=== PATIENT | female | born 1990 | race Caucasian/White ===

== ENCOUNTER 2017-02-08 15:04 | Emergency (ER) | payer SELFPAY ==
[~2017-02-08] VITALS: Ht 154.9 cm; Wt 56.7 kg
[2017-02-08] MEDS ORDERED: KETOROLAC 30 MG/ML VIAL (J1885) IV ONE (15:30)
[2017-02-08] MEDS ORDERED: NS 1,000 ML IV ONE (15:30)
[2017-02-08] MEDS ORDERED: ONDANSETRON 4MG/2ML VIAL (J2405) IV ONE (15:30)
[2017-02-08 16:05] LABS: BASO % 0.4 % (0.0-1.0); EOS % 0.4 % (0.0-3.0); LARGE UNSTAINED CELL # 0.1 K/mm3 (0.0-0.4); LARGE UNSTAINED CELL % 0.7 % (0.0-4.0); LYMPH # 1.7 K/mm3 (1.5-6.5); LYMPH % 16.2 % (24.0-44.0); MEAN CORPUSCULAR HEMOGLOBIN 30.2 pg (27.0-33.0); MEAN CORPUSCULAR HGB CONC 34.3 g/dl (32.0-36.5); MEAN CORPUSCULAR VOLUME 87.9 fl (80.0-96.0); MONO # 0.4 K/mm3 (0.0-0.8); NEUTROPHILS # 7.7 K/mm3 (1.8-7.7); NEUTROPHILS % 78.3 % (36.0-66.0); PLATELET COUNT, AUTOMATED 217 k/mm3 (150-450); WHITE BLOOD COUNT 9.8 K/mm3 (4.0-10.0)
[2017-02-08 16:10] LABS: INR 1.05
[2017-02-08 16:24] LABS: CONTROL LINE HCG INT CTR LINE PRESENT
[2017-02-08 16:28] LABS: ALBUMIN 4.3 GM/DL (3.2-5.2); ALBUMIN/GLOBULIN RATIO 1.19 (1.00-1.93); ALKALINE PHOSPHATASE 45 U/L (45-117); ALT/SGPT 19 U/L (12-78); AMYLASE 33 U/L (25-115); ANION GAP 6 MEQ/L (8-16); AST/SGOT 12 U/L (15-37); BILIRUBIN,DIRECT < 0.1 MG/DL (0.0-0.2); BILIRUBIN,TOTAL 0.3 MG/DL (0.2-1.0); BLOOD UREA NITROGEN 9 MG/DL (7-18); CALCIUM LEVEL 9.8 MG/DL (8.5-10.1); CARBON DIOXIDE LEVEL 27 MEQ/L (21-32); CHLORIDE LEVEL 105 MEQ/L (98-107); CREATININE FOR GFR 0.66 MG/DL (0.55-1.02); GLOMERULAR FILTRATION RATE > 60.0 (>60); GLUCOSE, FASTING 89 MG/DL (70-105); POTASSIUM SERUM 3.8 MEQ/L (3.5-5.1); SODIUM LEVEL 138 MEQ/L (136-145); TOTAL PROTEIN 7.9 GM/DL (6.4-8.2)
--- NOTE | 2017-02-08 17:07 | REP ---
GALLBLADDER ULTRASOUND: HISTORY: Right upper quadrant pain. A gallstone is present in the neck of the gallbladder. The gallbladder is distended. The gallbladder wall measures 1.5 mm. The common bile duct measures 4.5 mm. The liver is normal in echogenicity. The pancreas is not well seen. The right kidney is normal in echogenicity. The right kidney measures 5.3 cm in transverse x 4 cm in AP x 10.9 cm in cephalocaudal dimensions. There is no hydronephrosis or mass. IMPRESSION: Cholelithiasis. Signed by Dale Christianson MD 02/08/2017 05:17 P
[2017-02-08] MEDS ORDERED: NORCOTAB PO (17:22)
[2017-02-08] MEDS ORDERED: ZOFR4TAB3 PO (17:22)
[2017-02-08 18:20] VITALS: BP 129/77
== END 2017-02-08 18:21 | disposition home or self-care (01) ==
LOC: M ED 16:06
DX: K80.20 Calculus of gallbladder without cholecystitis without obstruction (principal); R11.0 Nausea; F17.200 Nicotine dependence, unspecified, uncomplicated
CPT/HCPCS: 76705; 80048; 80076; 81001; 82150; 83690; 84703; 85025; 85610; 87086; 96374; 96375; 99282; J1885; J2405

== ENCOUNTER → 2018-03-15 | Outpatient (CLI) | payer OTHER ==
[2018-03-15 14:07] LABS: BASO # 0.1 10^3/uL (0.0-0.2); BASO % 0.6 % (0.0-1.0); EOS # 0.1 10^3/uL (0.0-0.50); EOS % 0.6 % (0.0-3.0); HEMOGLOBIN 13.3 g/dl (12.0-15.5); IMMATURE GRANULOCYTE % 0.5 % (0-3.0); LYMPH # 1.9 10^3/uL (1.5-6.5); MEAN CORPUSCULAR HEMOGLOBIN 29.9 pg (27.0-33.0); MEAN CORPUSCULAR HGB CONC 33.3 g/dl (32.0-36.5); MEAN CORPUSCULAR VOLUME 89.9 fl (80.0-96.0); MONO # 0.6 10^3/uL (0.0-0.8); MONO % 6.8 % (0.0-5.0); NEUTROPHILS # 5.6 10^3/uL (1.8-7.7); NEUTROPHILS % 68.5 % (36.0-66.0); PLATELET COUNT, AUTOMATED 243 10^3/uL (150-450); RED BLOOD COUNT 4.45 10^6/uL (4.00-5.40); RED CELL DISTRIBUTION WIDTH 12.6 % (11.5-14.5); WHITE BLOOD COUNT 8.2 10^3/uL (4.0-10.0)
[2018-03-16 12:10] LABS: RUBELLA IgG QUALITATIVE IMMUNE (IMMUNE)
[2018-03-16 12:18] LABS: HBsAg Prenatal NEGATIVE (NEGATIVE)
[2018-03-16 12:40] LABS: HIV 1&2 SCREEN CENTAUR NEGATIVE (NEGATIVE)
== END ==
LOC: M SMT 10:51
DX: Z36.89 Encounter for other specified antenatal screening (principal); Z3A.01 Less than 8 weeks gestation of pregnancy
CPT/HCPCS: 86762

== ENCOUNTER → 2018-06-11 | Outpatient (CLI) | payer OTHER | LOC: M RAD 11:57 | DX: Z36.89 Encounter for other specified antenatal screening (principal); Z3A.19 19 weeks gestation of pregnancy | CPT/HCPCS: 76811 ==

== ENCOUNTER → 2018-08-06 | Outpatient (CLI) | payer OTHER ==
[2018-08-06 13:59] LABS: HEMATOCRIT 33.3 % (36.0-47.0); HEMOGLOBIN 10.9 g/dl (12.0-15.5); MEAN CORPUSCULAR HEMOGLOBIN 29.5 pg (27.0-33.0); MEAN CORPUSCULAR HGB CONC 32.7 g/dl (32.0-36.5); MEAN CORPUSCULAR VOLUME 90.2 fl (80.0-96.0); PLATELET COUNT, AUTOMATED 244 10^3/uL (150-450); RED BLOOD COUNT 3.69 10^6/uL (4.00-5.40)
[2018-08-06 15:20] LABS: GLUCOSE CHALLENGE TEST 1 HOUR 183 MG/DL (LESS THAN 140)
== END ==
LOC: M LAB 11:59
DX: Z34.82 Encounter for supervision of other normal pregnancy, second trimester (principal); Z3A.00 Weeks of gestation of pregnancy not specified
CPT/HCPCS: 82950

== ENCOUNTER → 2018-08-14 | Outpatient (CLI) | payer OTHER ==
[2018-08-14 09:32] LABS: GLUCOSE, FASTING 101 MG/DL (LESS THAN 95)
[2018-08-14 10:30] LABS: 1 HR GLUCOSE 204 MG/DL (LESS THAN 180)
[2018-08-14 11:57] LABS: 2 HR GLUCOSE 216 MG/DL (LESS THAN 155)
[2018-08-14 12:37] LABS: 3 HR GLUCOSE 168 MG/DL (LESS THAN 140)
== END ==
LOC: M LAB 08:24
DX: R73.02 Impaired glucose tolerance (oral) (principal)
CPT/HCPCS: 82951

== ENCOUNTER → 2018-09-24 | Outpatient (CLI) | payer OTHER | LOC: M RAD 17:12 | DX: O24.419 Gestational diabetes mellitus in pregnancy, unspecified control (principal); Z3A.35 35 weeks gestation of pregnancy | CPT/HCPCS: 76816 ==

== ENCOUNTER → 2018-10-02 | Outpatient (REF) | payer OTHER ==
[~2018-10-02] MED LIST: ANTA500C PO; IBUP-1114 PO; MAPA500T17 PO; NORCOTAB PO; PRENTAB9 PO; ZOFR4TAB14 PO
== END ==
LOC: M LAB REF 17:21
PROVIDERS: ATTEND Advanced Practice Midwife
DX: O24.419 Gestational diabetes mellitus in pregnancy, unspecified control (principal)

== ENCOUNTER → 2018-10-10 | Outpatient (REF) | payer OTHER ==
[~2018-10-10] MED LIST changes: -MAPA500T17 PO; +MAPA500T2 PO
[2018-10-10 19:31] LABS: TOTAL PROTEIN,RANDOM URINE 19.4 MG/DL (0.0-12.0)
== END ==
LOC: M LAB REF 17:41
PROVIDERS: ATTEND Advanced Practice Midwife
DX: Z34.83 Encounter for supervision of other normal pregnancy, third trimester (principal)

== ENCOUNTER → 2018-10-10 | Outpatient (CLI) | payer OTHER ==
[2018-10-10 17:25] LABS: HEMATOCRIT 31.6 % (36.0-47.0); HEMOGLOBIN 10.2 g/dl (12.0-15.5); MEAN CORPUSCULAR HEMOGLOBIN 28.1 pg (27.0-33.0); MEAN CORPUSCULAR HGB CONC 32.3 g/dl (32.0-36.5); MEAN CORPUSCULAR VOLUME 87.1 fl (80.0-96.0); PLATELET COUNT, AUTOMATED 144 10^3/uL (150-450); RED BLOOD COUNT 3.63 10^6/uL (4.00-5.40); WHITE BLOOD COUNT 6.9 10^3/uL (4.0-10.0)
[2018-10-10 17:28] LABS: ALT/SGPT 14 U/L (12-78); BILIRUBIN,TOTAL 0.3 MG/DL (0.2-1.0); CREATININE FOR GFR 0.81 MG/DL (0.55-1.30); GLOMERULAR FILTRATION RATE > 60.0 (>60); LDH LACTATE DEHYDROGENASE 187 U/L (84-246)
== END ==
LOC: M SMT 13:40
PROVIDERS: ATTEND Advanced Practice Midwife
DX: Z34.83 Encounter for supervision of other normal pregnancy, third trimester (principal); Z36.89 Encounter for other specified antenatal screening

== ENCOUNTER 2018-10-11 14:57 | Inpatient (IN) | payer OTHER ==
[~2018-10-11] VITALS: Ht 154.9 cm; Wt 83.5 kg
[2018-10-11] VITALS (10 sets, daily range): BP systolic 137–163; BP diastolic 84–96
[~2018-10-11 14:57] MED LIST changes: -ANTA500C PO; -IBUP-1114 PO; -MAPA500T2 PO; -PRENTAB9 PO
[2018-10-11] MEDS ORDERED: ANTA500C PO (15:20)
[2018-10-11] MEDS ORDERED: MAPA500T17 PO (15:20)
[2018-10-11 16:01] LABS: HEMATOCRIT 30.1 % (36.0-47.0); MEAN CORPUSCULAR HEMOGLOBIN 28.1 pg (27.0-33.0); MEAN CORPUSCULAR HGB CONC 33.2 g/dl (32.0-36.5); MEAN CORPUSCULAR VOLUME 84.6 fl (80.0-96.0); PLATELET COUNT, AUTOMATED 150 10^3/uL (150-450); RED BLOOD COUNT 3.56 10^6/uL (4.00-5.40); WHITE BLOOD COUNT 8.1 10^3/uL (4.0-10.0)
[2018-10-11 16:26] LABS: ALT/SGPT 14 U/L (12-78); BILIRUBIN,TOTAL 0.2 MG/DL (0.2-1.0); CREATININE FOR GFR 0.66 MG/DL (0.55-1.30); GLOMERULAR FILTRATION RATE > 60.0 (>60); LDH LACTATE DEHYDROGENASE 209 U/L (84-246); URIC ACID 4.5 MG/DL (2.6-6.0)
[2018-10-11] MEDS: miSOPROStol 50 MCG 1/2 TAB (S0191) PO SCH ×2 (16:35→20:32)
--- NOTE | 2018-10-11 17:07 | HPE ---
DATE OF ADMISSION: 10/11/2018 CHIEF COMPLAINT: Induction of labor. HISTORY OF PRESENT ILLNESS: Funmilayo is a 28-year-old G1, P0 0-0-0 at 37 weeks, 1 day estimated gestational age by first-trimester ultrasound dated 03/15/2018 with an estimated date of delivery of 10/28/2018. She is presenting from the office for induction of labor secondary to gestational hypertension. She was seen in the office today, where her blood pressure was 160/90. Repeat blood pressure was 158/90. The patient also has a diagnosis of A1 gestational diabetes and was reporting nausea, vomiting, and diarrhea. It was recommended by Dr. Simpson that the patient go to labor and delivery (L and D) for induction of labor. She established care with [facility] in the first semester, and pre-eclamptic labs yesterday were negative. LABORATORIES: Blood type O positive. Blood pressures in the office have been ranging from 114-176 systolic over 66-98 diastolic. GBS negative. Rubella immune, HIV negative, gonorrhea negative, chlamydia negative, hepatitis B surface antigen negative, VDRL nonreactive. Diabetes screen was 183. Three-hour GGT 101/204/216/168. OBSTETRICAL ULTRASOUNDS: On 06/11/2018, single intrauterine (IUP) with a posterior placenta. On 09/24/2018, showed growth in the 64th percentile, amniotic fluid volume (AFV) 17.4. PAST OBSTETRICAL HISTORY: None. PAST MEDICAL HISTORY: A1 gestational diabetes. HOME MEDICATIONS: Zofran 4 mg every 4 hours as needed for nausea. PAST SURGICAL HISTORY: None. ALLERGIES: Nickel. SOCIAL HISTORY: The patient is single. Lives with father of the baby. Does smoke 10 cigarettes per day. Denies any drug or alcohol use. PHYSICAL EXAMINATION: VITAL SIGNS: Temperature 98.4 heart rate 84, blood pressure 140/91. ABDOMEN: Gravid. Sterile vaginal exam was closed, thick, -3 station. monitor: Category 1 tracing with a baseline of 130, moderate variability. Accelerations. No decelerations Tocometer: No contractions. ASSESSMENT AND PLAN: 1. Intrauterine (IUP) at 37 weeks, 1 day estimated gestational age, presenting for induction of labor secondary to gestational hypertension. She was counseled on the risks of induction, including risk of section. She is in agreement with the plan and was consented for emergency surgery and blood products if indicated. 2. GBS negative. No antibiotics needed. 3. A1 gestational diabetic. 4. I anticipate cervical ripening and subsequent spontaneous vaginal delivery. My faculty preceptor for this patient encounter was physically present during the encounter and was fully available. All aspects of the patient interview, examination, medical decision making process, and medical care plan development were reviewed and approved by the faculty preceptor. The faculty preceptor is aware and concurs with the plan as stated in the body of this note and will attest to such by his/her co-signature. CAROL
[2018-10-12] VITALS (45 sets, daily range): BP systolic 117–178; BP diastolic 61–109
[2018-10-12] MEDS: miSOPROStol 50 MCG 1/2 TAB (S0191) PO SCH ×3 (00:37→08:42)
--- NOTE | 2018-10-12 08:12 | IPNPDOC ---
Text Note Date of Service The patient was seen on 10/12/18. NOTE Reports mild cramping Denies LOF or bleeding Irregular UC FH 135, Cat I SVE /-2, slightly firm Repeat misoprostol PO. Consider pitocin and Cooks Catheter @ 1230. BP stable VS,Fishbone, I+O VS, Fishbone, I+O Laboratory Tests 10/11/18 15:47 Red Blood Count 3.56 L, Mean Corpuscular Volume 84.6, Mean Corpuscular Hemoglobin 28.1, Mean Corpuscular Hemoglobin Concent 33.2, Red Cell Distribution Width 13.1, Aspartate Amino Transf (AST/SGOT) 17, Alanine Aminotransferase (ALT/SGPT) 14, Lactate Dehydrogenase 209, Total Bilirubin 0.2, Uric Acid 4.5 Vital Signs Date Time Temp Pulse Resp B/P (MAP) Pulse Ox O2 Delivery O2 Flow Rate FiO2 10/12/18 07:03 99.1 90 18 130/78 (95) I&O- Last 24 Hours up to 6 AM 10/12/18 06:00 Output Total 500 ml Balance -500 ml Nancy Little CNM Oct 12, 2018 08:12
--- NOTE | 2018-10-12 13:25 | IPNPDOC ---
Text Note Date of Service The patient was seen on 10/12/18. NOTE S: Patient feeling more uncomfortable with contractions O: SVE 1-2/50%/-2 station TOCO: contractions q2-3 minutes FHR: Cat I tracing, baseline 140, accels no decels A: 28 yo for induction of labor. Has received 5 doses of misoprostol P: Cook's trejo inserted with 60/40 cc. Anticipate VS,Fishbone, I+O VS, Fishbone, I+O Laboratory Tests 10/11/18 15:47 Red Blood Count 3.56 L, Mean Corpuscular Volume 84.6, Mean Corpuscular Hemoglobin 28.1, Mean Corpuscular Hemoglobin Concent 33.2, Red Cell Distribution Width 13.1, Aspartate Amino Transf (AST/SGOT) 17, Alanine Aminotransferase (ALT/SGPT) 14, Lactate Dehydrogenase 209, Total Bilirubin 0.2, Uric Acid 4.5 Vital Signs Date Time Temp Pulse Resp B/P (MAP) Pulse Ox O2 Delivery O2 Flow Rate FiO2 10/12/18 11:13 99.3 87 18 121/74 (90) I&O- Last 24 Hours up to 6 AM 10/12/18 05:59 Output Total 500 ml Balance -500 ml GME ATTESTATION GME ATTESTATION My faculty preceptor for this patient encounter was physically present during the encounter and was fully available. All aspects of the patient interview, examination, medical decision making process, and medical care plan development were reviewed and approved by the faculty preceptor. The faculty preceptor is aware and concurs with the plan as stated in the body of this note and will attest to such by his/her cosignature. DORINA BARAKAT DO Oct 12, 2018 13:25
[2018-10-12] MEDS ORDERED: PROMETHAZINE INJ 25 MG/ML VIAL (J2550) IV ONE (13:30)
[2018-10-12] MEDS ORDERED: BUTORPHANOL 2 MG/ML INJ (J0595) IV ONE ×2 (13:30→16:15)
[2018-10-12] MEDS ORDERED: OXYTOCIN DRIP 30 UNITS in APPROPRIATE DILUENT 1 EA IV SCH (13:30)
[2018-10-12] MEDS: LR 1,000 ML IV SCH (13:36)
--- NOTE | 2018-10-12 20:07 | IPNPDOC ---
Text Note Date of Service The patient was seen on 10/12/18. NOTE Feeling more comfortable Pitocin @ 8mu Vaginal bulb deflated. Uterine through cervix and removed SVE 5/50/-2 (bulb effect) UC 2-4 minutes x 45-60 seconds FH 140, Cat I Rec sleep. Pt plans epidural when she becomes uncomfortable. VS,Fishbone, I+O VS, Fishbone, I+O Vital Signs Date Time Temp Pulse Resp B/P (MAP) Pulse Ox O2 Delivery O2 Flow Rate FiO2 10/12/18 16:48 18 10/12/18 15:43 78 144/85 (104) 10/12/18 14:00 Room Air 10/12/18 12:18 99.0 I&O- Last 24 Hours up to 6 AM 10/12/18 06:00 Output Total 500 ml Balance -500 ml Nancy Little CNM Oct 12, 2018 20:07
[2018-10-12] MEDS ORDERED: hydrOXYzine 50 MG TAB PO SCH (21:00)
[2018-10-13] VITALS (39 sets, daily range): BP systolic 124–167; BP diastolic 63–104
[2018-10-13 00:14] LABS: HEMATOCRIT 28.9 % (36.0-47.0); HEMOGLOBIN 9.5 g/dl (12.0-15.5); MEAN CORPUSCULAR HEMOGLOBIN 28.1 pg (27.0-33.0); MEAN CORPUSCULAR HGB CONC 32.9 g/dl (32.0-36.5); MEAN CORPUSCULAR VOLUME 85.5 fl (80.0-96.0); PLATELET COUNT, AUTOMATED 128 10^3/uL (150-450); RED BLOOD COUNT 3.38 10^6/uL (4.00-5.40); WHITE BLOOD COUNT 8.7 10^3/uL (4.0-10.0)
[2018-10-13] MEDS ORDERED: FENTANYL 2MCG/ML ROPIVACAINE 0.2% IN 0.9% NACL 100ML IVBAG As Ordered ONE (00:27)
[2018-10-13] MEDS ORDERED: FENTANYL/ROPIVACAINE/NACL BAG 100 ML EPIDURAL SCH (01:09)
[2018-10-13] MEDS ORDERED: diphenhydrAMINE INJ 50MG/ML VIAL (J1200) IV PRN (01:09)
[2018-10-13] MEDS ORDERED: ePHEDrine SULFATE 25 MG/5 ML(5MG/ML) SYRINGE IV PRN (01:09)
[2018-10-13] MEDS ORDERED: LACTATED RINGER'S 1000 ML IV PRN (01:09)
[2018-10-13] MEDS ORDERED: NALOXONE INJ 0.4 MG/1 ML VIAL (J2310) IV PRN (01:09)
[2018-10-13] MEDS ORDERED: EPIDURAL/PCA KEYS XX PRN (01:09)
[2018-10-13] MEDS ORDERED: ONDANSETRON 4MG/2ML VIAL (J2405) IV PRN ×2 (01:09→11:15)
[2018-10-13] MEDS ORDERED: EPIDURAL COMMENT XX SCH (01:09)
[2018-10-13] MEDS ORDERED: REFRIGERATOR IV KEYS XX PRN (01:09)
[2018-10-13 02:07] LABS: ALT/SGPT 14 U/L (12-78); BILIRUBIN,TOTAL 0.2 MG/DL (0.2-1.0); CREATININE FOR GFR 0.71 MG/DL (0.55-1.30); GLOMERULAR FILTRATION RATE > 60.0 (>60); LDH LACTATE DEHYDROGENASE 231 U/L (84-246); URIC ACID 5.4 MG/DL (2.6-6.0)
--- NOTE | 2018-10-13 02:47 | IPNPDOC ---
Text Note Date of Service The patient was seen on 10/13/18. NOTE Comfortable with epidural Pitocin @ 8mu SVE per nursing 6cm FH 135, minimal/moderate variablity with accels UC 3-5 minutes apart VS,Fishbone, I+O VS, Fishbone, I+O Laboratory Tests 10/12/18 23:59 Red Blood Count 3.38 L, Mean Corpuscular Volume 85.5, Mean Corpuscular Hemoglobin 28.1, Mean Corpuscular Hemoglobin Concent 32.9, Red Cell Distribution Width 13.4 10/13/18 01:30 Aspartate Amino Transf (AST/SGOT) 20, Alanine Aminotransferase (ALT/SGPT) 14, Lactate Dehydrogenase 231, Total Bilirubin 0.2, Uric Acid 5.4 Vital Signs Date Time Temp Pulse Resp B/P (MAP) Pulse Ox O2 Delivery O2 Flow Rate FiO2 10/13/18 00:00 99.0 10/12/18 23:57 88 149/103 (118) 10/12/18 23:25 18 10/12/18 14:00 Room Air I&O- Last 24 Hours up to 6 AM0 10/13/18 05:59 Output Total 400 ml Balance -400 ml Nancy Little CNM Oct 13, 2018 02:47
[2018-10-13] MEDS ORDERED: ACETAMINOPHEN 500 MG TAB PO PRN ×2 (03:00→11:15)
[2018-10-13] MEDS: LR 1,000 ML IV SCH (03:04)
[2018-10-13] MEDS: PRENATAL VITAMINS CHEWABLE TABLET PO SCH (09:00)
[2018-10-13] MEDS: OXYTOCIN DRIP 30 UNITS in APPROPRIATE DILUENT 1 EA IV SCH ×2 (11:05→11:36)
[2018-10-13] MEDS ORDERED: MEASLES,MUMPS,RUBELLA VACCINE INJ (MMR-II) (90707) SC SCH (11:15)
[2018-10-13] MEDS ORDERED: RHOGAM 300 MCG (1500 IU) INJ (J2790) IM SCH (11:15)
[2018-10-13] MEDS ORDERED: METHYLERGONOVINE MALEATE 0.2 MG TAB PO PRN (11:15)
[2018-10-13] MEDS ORDERED: LIDOCAINE 1% MDV 20ML VIAL INFIL ONE (11:15)
[2018-10-13] MEDS ORDERED: DIBUCAINE 1% OINTMENT 30GM TOP PRN (11:15)
[2018-10-13] MEDS: IBUPROFEN 800 MG TAB PO PRN (16:39)
[2018-10-13] MEDS: DOCUSATE SODIUM 100 MG CAP PO SCH (21:00)
[2018-10-14 02:01] VITALS: BP 122/76
[2018-10-14 06:00] VITALS: BP 134/80
[2018-10-14] MEDS: IBUPROFEN 800 MG TAB PO PRN ×2 (06:35→21:21)
[2018-10-14] MEDS: DOCUSATE SODIUM 100 MG CAP PO SCH ×2 (09:00→21:21)
[2018-10-14] MEDS: PRENATAL VITAMINS CHEWABLE TABLET PO SCH (09:47)
[2018-10-14 10:23] VITALS: BP 110/61
[2018-10-14 15:45] VITALS: BP 141/80
[2018-10-14 17:53] VITALS: BP 140/78
[2018-10-14 22:00] VITALS: BP 140/83
[2018-10-15 02:00] VITALS: BP 137/78
[2018-10-15 06:00] VITALS: BP 162/82
[2018-10-15 06:30] VITALS: BP 156/90
[2018-10-15] MEDS: DOCUSATE SODIUM 100 MG CAP PO SCH (07:47)
[2018-10-15] MEDS: PRENATAL VITAMINS CHEWABLE TABLET PO SCH (07:47)
[2018-10-15] MEDS: IBUPROFEN 800 MG TAB PO PRN (07:48)
[2018-10-15] MEDS ORDERED: PRENTAB9 PO (09:01)
[2018-10-15] MEDS ORDERED: IBUP-1114 PO (09:01)
--- NOTE | 2018-10-15 15:08 | DN ---
DATE OF DELIVERY: 10/13/2018 PREDELIVERY DIAGNOSES: 37+ weeks gestation, type A1 gestational diabetes, gestational hypertension. POSTDELIVERY DIAGNOSIS: Delivered. PROCEDURE: Spontaneous vaginal delivery. ASSISTANT PURCHASING MANAGER: Dale Valle MD CREAM CHEESE MAKER: Amanda Crisostomo DO ANESTHESIA: Epidural. ESTIMATED BLOOD LOSS: 250 mL. FINDINGS: 6 pound 15 ounce female , scores 9 and 9. DELIVERY SUMMARY: After a 3 hour, 25 minute second stage, the patient had spontaneous delivery of a 6 pound 15 ounce female infant, scores 9 and 9 under epidural anesthesia. There was no nuchal cord. The shoulders delivered with ease. The cried immediately and was handed to the mother. The cord was then clamped and cut. The placenta delivered spontaneously and appeared to be intact. The patient received IV Pitocin immediately after delivery of the placenta. A second-degree perineal laceration was repaired with 2.0 chromic in the usual fashion. Normal rectal exam at the end of the procedure. Sponge and needle counts were correct.
== END 2018-10-15 12:15 | disposition home or self-care (01) | DRG 560 ==
LOC: M LDI 14:57 → M OBS 10-13 13:15
PROVIDERS: ADMIT Advanced Practice Midwife; ATTEND Specialist
PROC: 3E0P7GC Introduction of Other Therapeutic Substance into Female Reproductive, Via Natural or Artificial Opening (ICD-10-PCS; 2018-10-11)
PROC: 10E0XZZ Delivery of Products of Conception, External Approach (ICD-10-PCS; principal; 2018-10-13)
PROC: 0KQM0ZZ Repair Perineum Muscle, Open Approach (ICD-10-PCS; 2018-10-13)
DX: O13.4 Gestational [pregnancy-induced] hypertension without significant proteinuria, complicating childbirth (principal); O24.420 Gestational diabetes mellitus in childbirth, diet controlled; F17.210 Nicotine dependence, cigarettes, uncomplicated; Z3A.37 37 weeks gestation of pregnancy; O99.334 Smoking (tobacco) complicating childbirth; O70.1 Second degree perineal laceration during delivery; Z37.0 Single live birth

== ENCOUNTER 2020-01-21 04:38 | Emergency (ER) | payer OTHER, SELFPAY ==
[~2020-01-21] VITALS: Ht 154.9 cm; Wt 170.0 kg
[~2020-01-21 04:38] MED LIST changes: +CALC1CHW3 PO; +HYDR-3715 PO; +IBUP-1114 PO; +MAPA500T2 PO; -NORCOTAB PO; +PRENTAB9 PO
[2020-01-21] MEDS ORDERED: NS 1,000 ML IV ONE (05:45)
[2020-01-21] MEDS ORDERED: ONDANSETRON 4MG/2ML VIAL (J2405) IV ONE (05:45)
[2020-01-21 05:46] LABS: BASO % 0.4 % (0.0-1.0); EOS # 0.1 10^3/uL (0.0-0.5); EOS % 0.6 % (0.0-3.0); HEMATOCRIT 40.9 % (36.0-47.0); HEMOGLOBIN 13.9 g/dl (12.0-15.5); LYMPH # 2.2 10^3/uL (1.5-5.0); LYMPH % 20.8 % (24.0-44.0); MEAN CORPUSCULAR HEMOGLOBIN 28.8 pg (27.0-33.0); MEAN CORPUSCULAR VOLUME 84.9 fl (80.0-96.0); MONO # 0.6 10^3/uL (0.0-0.8); MONO % 5.5 % (0.0-5.0); NEUTROPHILS # 7.7 10^3/uL (1.5-8.5); NEUTROPHILS % 72.3 % (36.0-66.0); PLATELET COUNT, AUTOMATED 304 10^3/uL (150-450); RED BLOOD COUNT 4.82 10^6/uL (4.00-5.40); WHITE BLOOD COUNT 10.7 10^3/uL (4.0-10.0)
[2020-01-21 05:49] LABS: LIPASE 71 U/L (73-393)
[2020-01-21] MEDS: MORPHINE 4 MG/ML 1ML VIAL/SYRINGE (J2270) IV PRN ×2 (05:52→07:22)
[2020-01-21 06:30] LABS: ALBUMIN 4.1 GM/DL (3.2-5.2); ALT/SGPT 31 U/L (12-78); BILIRUBIN,TOTAL 0.3 MG/DL (0.2-1.0); BLOOD UREA NITROGEN 10 MG/DL (7-18); CALCIUM LEVEL 9.8 MG/DL (8.5-10.1); CARBON DIOXIDE LEVEL 25 MEQ/L (21-32); CHLORIDE LEVEL 106 MEQ/L (98-107); CREATININE FOR GFR 0.79 MG/DL (0.55-1.30); GLOMERULAR FILTRATION RATE > 60.0 (>60); GLUCOSE, FASTING 114 MG/DL (70-100); POTASSIUM SERUM 4.6 MEQ/L (3.5-5.1); SODIUM LEVEL 136 MEQ/L (136-145); TOTAL PROTEIN 7.8 GM/DL (6.4-8.2)
[2020-01-21 06:53] LABS: APPEARANCE, URINE CLEAR (CLEAR); BACTERIA, URINE AUTO 1+ (NEGATIVE); BILIRUBIN, URINE AUTO NEGATIVE (NEGATIVE); BLOOD, URINE BLOOD NEGATIVE (NEGATIVE); COLOR, URINE STRAW (YELLOW); GLUCOSE, URINE (UA) AUTO NEGATIVE (NEGATIVE); KETONE, URINE AUTO NEGATIVE (NEGATIVE); LEUKOCYTE ESTERASE, URINE AUTO NEGATIVE (NEGATIVE); MUCUS, URINE SMALL (NEGATIVE); NITRITE, URINE AUTO NEGATIVE (NEGATIVE); PROTEIN, URINE AUTO NEGATIVE (NEGATIVE); RBC, URINE AUTO 0 /HPF (0-3); SPECIFIC GRAVITY URINE AUTO 1.006 (1.002-1.035); SQUAMOUS EPITHELIAL CELL UR AU 2 /HPF (0-6); UROBILINOGEN, URINE AUTO 0.2 mg/dL (0.0-2.0); WBC, URINE AUTO 1 /HPF (0-3)
--- NOTE | 2020-01-21 08:10 | REPVR ---
PROCEDURE INFORMATION: Exam: US Abdomen Limited, Right Upper Quadrant Exam date and time: 01/21/2020 6:56 AM Age: 29 years old Clinical indication: Abdominal pain; Acute; Additional info: Ruq and epigastric pain TECHNIQUE: Imaging protocol: Real-time ultrasound of the abdomen with image documentation. Examination was focused on the right upper quadrant. COMPARISON: GALLBLADDER US 02/08/2017 4:03 PM FINDINGS: Liver: No focal hepatic lesion is seen. The liver is slightly echogenic. Gallbladder: The gallbladder is moderately distended containing small echogenic shadowing stone, nonmobile stone in the gallbladder neck. There is no gallbladder wall thickening or pericholecystic fluid. Common bile duct: The bile duct is normal in caliber measuring 5 mm. Pancreas: The visualized portion of the pancreas appear unremarkable. The distal tail of the pancreas is obscured by bowel gas. Right kidney: The right kidney measures 10.3 x 4.1 x 4.5 cm. No right renal mass, stone, cyst or hydronephrosis seen. IMPRESSION: Moderately distended gallbladder containing nonmobile stone in the gallbladder neck but with no sonographic evidence of cholecystitis. Fatty infiltration of the liver. Electronically signed by: Justen Leslie On 01/21/2020 08:09:59 AM
[2020-01-21 08:39] VITALS: BP 143/83
== END 2020-01-21 08:46 | disposition home or self-care (01) ==
LOC: M ED 04:38
DX: K80.70 Calculus of gallbladder and bile duct without cholecystitis without obstruction (principal); F17.200 Nicotine dependence, unspecified, uncomplicated
CPT/HCPCS: 76705; 80053; 81001; 83690; 84702; 85025; 93041; 96361; 96374; 96375; 96376; 99285; J2270; J2405

== ENCOUNTER → 2021-08-25 | Outpatient (CLI) | payer OTHER ==
[2021-08-25 13:27] LABS: BASO % 0.3 % (0.0-1.0); EOS # 0.1 10^3/uL (0.0-0.5); EOS % 0.8 % (0.0-3.0); HEMATOCRIT 38.6 % (36.0-47.0); LYMPH # 1.5 10^3/uL (1.5-5.0); LYMPH % 16.9 % (24.0-44.0); MEAN CORPUSCULAR HEMOGLOBIN 29.4 pg (27.0-33.0); MEAN CORPUSCULAR HGB CONC 33.7 g/dl (32.0-36.5); MEAN CORPUSCULAR VOLUME 87.3 fl (80.0-96.0); MONO # 0.5 10^3/uL (0.0-0.8); MONO % 5.9 % (2.0-8.0); NEUTROPHILS # 6.7 10^3/uL (1.5-8.5); NEUTROPHILS % 75.5 % (36.0-66.0); PLATELET COUNT, AUTOMATED 240 10^3/uL (150-450); RED BLOOD COUNT 4.42 10^6/uL (4.00-5.40); WHITE BLOOD COUNT 8.9 10^3/uL (4.0-10.0)
[2021-08-25 14:27] LABS: HEPATITIS C VIRUS ABY INDEX 0.1 INDEX (<0.8); HIV 1&2 SCREEN CENTAUR NEGATIVE (NEGATIVE)
[2021-08-25 15:49] LABS: GC DNA AMPLIFICATION NEGATIVE (NEGATIVE)
== END ==
LOC: M PLALAB 11:24
PROVIDERS: ATTEND Specialist
DX: Z36.9 Encounter for antenatal screening, unspecified (principal); Z3A.00 Weeks of gestation of pregnancy not specified

== ENCOUNTER → 2021-09-20 | Outpatient (CLI) | payer OTHER ==
--- NOTE | 2021-09-21 03:38 | REP ---
INDICATION: ANATOMY COMPARISON: None. TECHNIQUE: Transabdominal obstetrical ultrasound with color Doppler evaluation. FINDINGS: Examination demonstrates a single live intrauterine in breech presentation. motion is identified by technologist. Placenta is noted anterior and grade 1 without evidence for placenta previa or abruption. Amniotic fluid volume is normal. Cervix measures 6.9 cm in length and appears closed.. Selected gestational age: 20 weeks 2 days with KATHY 02/05/2022. Gestational age by current measurements 19 weeks 5 days with KATHY 02/09/2022. FHR equals 143 beats per minute. BPD: 4.7 cm; 20 weeks 2 days; 50% HC: 17.4 cm; 20 weeks 0 days; 40% AC: 14.7 cm; 20 weeks 0 days; 43% FL: 2.9 cm; 19 weeks 0 days; 19% HL: 2.8 cm; 19 weeks 1 day; 31% HC/AC: 1.19 Estimated weight 302 grams (15thpercentile). Anatomical assessment demonstrates normal structures including cranium, choroid plexus, cavum, cerebellum/posterior fossa, facial features, lungs, diaphragm, stomach, cord insertion/three-vessel cord, kidneys/bladder, spine, and extremities. IMPRESSION: Single live intrauterine in breech presentation demonstrating appropriate interval growth. Limited evaluation of the heart/ventricular outflow tracts. Remainder of the anatomical assessment is complete and normal. <Electronically signed by Shiv Disla > 09/21/21 [id number]
== END ==
LOC: M WHC 13:47
PROVIDERS: ATTEND Obstetrics & Gynecology
DX: Z36.9 Encounter for antenatal screening, unspecified (principal); Z3A.19 19 weeks gestation of pregnancy

== ENCOUNTER → 2021-10-18 | Outpatient (CLI) | payer OTHER | LOC: M WHC 12:30 | PROVIDERS: ATTEND Advanced Practice Midwife | DX: Z53.20 Procedure and treatment not carried out because of patient's decision for unspecified reasons (principal) ==

== ENCOUNTER → 2021-11-08 | Outpatient (CLI) | payer OTHER | LOC: M WHC 14:11 | PROVIDERS: ATTEND Advanced Practice Midwife | DX: Z34.92 Encounter for supervision of normal pregnancy, unspecified, second trimester (principal); Z3A.27 27 weeks gestation of pregnancy ==

== ENCOUNTER → 2022-01-11 | Outpatient (REF) | payer OTHER | LOC: M PLALAB 13:25 | PROVIDERS: ATTEND Specialist | DX: Z34.83 Encounter for supervision of other normal pregnancy, third trimester (principal) ==

== ENCOUNTER 2022-03-13 11:07 | Emergency (ER) | payer OTHER ==
[~2022-03-13] VITALS: Ht 154.9 cm; Wt 77.3 kg
[~2022-03-13 11:07] MED LIST changes: +ACET-683 PO; +ACET-907 PO; +COLA100C5 PO; +IBUP-1022 PO
[2022-03-13 11:57] LABS: BASO % 0.4 % (0.0-1.0); EOS # 0.1 10^3/uL (0.0-0.5); EOS % 0.5 % (0.0-3.0); HEMATOCRIT 36.9 % (36.0-47.0); HEMOGLOBIN 12.1 g/dl (12.0-15.5); LYMPH # 1.7 10^3/uL (1.5-5.0); LYMPH % 15.3 % (24.0-44.0); MEAN CORPUSCULAR HEMOGLOBIN 27.6 pg (27.0-33.0); MEAN CORPUSCULAR HGB CONC 32.8 g/dl (32.0-36.5); MEAN CORPUSCULAR VOLUME 84.2 fl (80.0-96.0); MONO # 0.4 10^3/uL (0.0-0.8); NEUTROPHILS # 8.6 10^3/uL (1.5-8.5); NEUTROPHILS % 79.5 % (36.0-66.0); PLATELET COUNT, AUTOMATED 297 10^3/uL (150-450); RED BLOOD COUNT 4.38 10^6/uL (4.00-5.40); WHITE BLOOD COUNT 10.8 10^3/uL (4.0-10.0)
[2022-03-13 12:19] LABS: HCG, SERUM QUALITATIVE NEGATIVE (NEGATIVE)
[2022-03-13 12:20] LABS: ALBUMIN 3.5 GM/DL (3.2-5.2); ALT/SGPT 47 U/L (12-78); AMYLASE 29 U/L (25-115); BILIRUBIN,DIRECT 0.1 MG/DL (0.0-0.2); BILIRUBIN,TOTAL 0.3 MG/DL (0.2-1.0); BLOOD UREA NITROGEN 7 MG/DL (7-18); CALCIUM LEVEL 8.5 MG/DL (8.5-10.1); CARBON DIOXIDE LEVEL 23 MEQ/L (21-32); CHLORIDE LEVEL 111 MEQ/L (98-107); CREATININE FOR GFR 0.78 MG/DL (0.55-1.30); GLOMERULAR FILTRATION RATE > 60.0 (>60); GLUCOSE, FASTING 102 MG/DL (70-100); LIPASE 64 U/L (73-393); POTASSIUM SERUM 4.1 MEQ/L (3.5-5.1); SODIUM LEVEL 139 MEQ/L (136-145); TOTAL PROTEIN 7.2 GM/DL (6.4-8.2)
[2022-03-13] MEDS ORDERED: ONDANSETRON 4MG/2ML VIAL IV ONE (14:10)
[2022-03-13] MEDS ORDERED: KETOROLAC 30 MG/ML 1ML VIAL IV ONE (14:10)
[2022-03-13 15:06] VITALS: BP 128/78
== END 2022-03-13 15:10 | disposition home or self-care (01) ==
LOC: M ED 11:07
DX: K80.70 Calculus of gallbladder and bile duct without cholecystitis without obstruction (principal); Z86.16 Personal history of COVID-19; Z79.3 Long term (current) use of hormonal contraceptives; Z91.048 Other nonmedicinal substance allergy status; Z77.098 Contact with and (suspected) exposure to other hazardous, chiefly nonmedicinal, chemicals
CPT/HCPCS: 76705; 80048; 80076; 82150; 83690; 84703; 85025; 96374; 96375; 99284; J1885; J2405